=== PATIENT | female | born 1935 | race Caucasian/White ===

== ENCOUNTER 2025-03-27 12:08 | Inpatient (IN) ==
[2025-03-27] MEDS: MECLIZINE HCL 25 MG TAB PO STA (13:14)
[2025-03-27] MEDS: ONDANSETRON INJ 2 MG/ML 2 ML VIAL IV STA (13:14)
[2025-03-27] MEDS: LORazepam 1 MG/1 ML SYR ED Inj Use IV STA ×2 (13:14→16:06)
[2025-03-27] MEDS: SODIUM CHLORIDE 0.9% 500 ML IV ONE (13:17)
--- NOTE | 2025-03-27 13:19 | Emergency Department Note ---
Impression & Plan Dizziness, Acute hyponatremia ED Provider Note HISTORY OF PRESENT ILLNESS: Patient is a 89-year-old female presenting with dizziness. Patient reports she has had intermittent dizziness for the last 4 days. Reports that 4 days ago (on 03/24/2025) she was not feeling well for most of the day. Reports that she had gone to bed and had woken up that night to go to the bathroom and felt very dizzy. She describes the dizziness as the room is spinning. She does report that her vision seems to be a little worse over the last 4 days. She states that she has been having difficulties getting around at home secondary to the continuous dizziness. She denies any chest pain or shortness of breath. She has not taken anything for her dizzy symptoms. She does report associated nausea with the dizziness. She denies any recent falls or head injuries. Denies any chiropractic manipulation of her neck. She does report her lower extremities seem more swollen to her. She denies any DVT or PE history. Denies any stroke history. She is not on any anticoagulation or antiplatelet therapies. Denies any recent changes to medications. ROS: as above PHYSICAL EXAM: Constitutional: Patient appears in no acute distress. Patient sitting in bed with her eyes closed. HENT: Head: Normocephalic and atraumatic. Eyes: EOMI, PERRL. Patient is notable to have nystagmus on examination. Mouth/Throat: Mucous membranes moist. Neck: Trachea midline. Neck supple. Cardiovascular: RRR, No murmurs, rubs or gallops. Intact distal pulses. Pulmonary/Chest: No respiratory distress. Breath sounds clear and equal bilaterally. No wheezes or rales. Abdominal: Abdomen soft, no tenderness, rebound or guarding. Musculoskeletal: No edema, tenderness or deformity noted. Skin: Warm and dry. No rash, erythema, pallor or cyanosis Psychiatric: Appropriate mood and affect for situation. Neurological: Alert and keenly responsive. Facies symmetric. Able to raise eyebrows, close eyes, smile, puff mouth, stick out tongue, move tongue left and right and raise palate symmetrically. Able to shrug shoulders. PERRLA. SILT to forehead below eye and at jawline. Can hear soft noise bilaterally. Good finger to nose. Strength 5/5 in bilateral upper and lower extremities. SILT throughout bilateral upper and lower extremities. MDM: - Vitals signs showed hypertension - History obtained via patient. History as above. - Chronic conditions affecting care: HLD - Differential diagnoses include, but are not limited to: ACS; dysrhythmia; dehydration; electrolyte abnormality; CVA; intracranial hemorrhage; peripheral vertigo - Order placed for continuous cardiac monitoring. At this time, monitor showed rate of 80 bpm with normal sinus rhythm, per my interpretation. - External medical records reviewed. - EKG image interpreted by myself showed normal sinus rhythm. Rate 73 bpm. QT 384. No acute ischemic changes. - Laboratory workup interpreted by myself showed normal WBC; hyponatremia (Na 126); elevated BNP (112); hypercalcemia (Ca 11.0); normal troponin; normal AST/ALT - CXR image reviewed interpreted by myself as needed for pneumonia, per my interpretation. - COVID/flu/RSV negative - Patient given 500 cc NS, 25 mg PO meclizine, 4 mg IV zofran and 0.25 mg IV ativan for symptomatic management. Blood pressure has improved. - CT head wo contrast negative for acute pathology. - CTA head/neck negative for acute pathology - On reassessment, patient ambulated to the bathroom with some slight assistance from nursing staff. She reports she is occasionally dizzy, but does state that her dizziness has significantly improved from presentation. - Patient came back from CT scan and her blood pressure was significantly elevated again. She is now sitting in bed and able to look at you and converse, but is stating that when she stood up she felt very dizzy and lightheaded and required some significant assistance. Discussed results with the patient and daughter at bedside. Do feel that she would benefit from further workup in the inpatient setting. They were agreeable. She was given 0.25 mg of IV Ativan for further dizziness control. - UA obtained. - Discussion was had with outpatient case manager about patient's case and need for admission - Hospitalist consulted for admission - Patient admitted to [facility] service for further evaluation and management. ASSESSMENT AND PLAN: Diagnosis: Dizziness; acute hyponatremia; hypertension Plan: Admit Past Med/Surg History Problem List (Updated 03/27/25 @ 15:22 by May Dominguez MD) Acute hyponatremia (Acute) Dizziness (Acute) H/O bilateral inguinal hernia repair (07/23/20) Bilateral Laparoscopic Inguinal Hernia Repair with Mesh Dr. Casanova 07/23/2020 Encounter for pre-operative examination Facial basal cell cancer Per records Parotid adenoma Hyperlipemia Chambers angioma Notalgia paresthetica John syndrome Parotid cyst excision 2005 H/O colonoscopy Right lower quadrant pain Bilateral inguinal hernia without obstruction or gangrene Medical History (Updated 03/27/25 @ 15:22 by May Dominguez MD) TGA (transient global amnesia) Hx of one year ago Negative work up per PCP Osteoarthritis History of trigeminal neuralgia History of asthma as a child HLD (hyperlipidemia) Mild mitral regurgitation Mild per 2013 ECHO- no murmur on 07/11/20 PCP exam Surgical History (Updated 08/08/20 @ 09:39 by Lopez Casanova DO, FACS) History of surgery removal benign growth parotid gland History of tonsillectomy and adenoidectomy History of colonoscopy Family History Mother Colorectal cancer Aunt Diabetes Family/Other Diabetes Other No family history of adverse response to anesthesia Social History Smoking Status: Never smoker Second Hand Exposure: No; Do You Dip or Chew Tobacco: No; Hx Alcohol Use: Yes Alcohol type: wine Hx Substance Use: No Preferred Language: French Communication Ability: Effective Work Force Advisor Required: No Beliefs That Will Affect Care: None marital status: / Current Living Situation Comment: currently living with son current occupational status: retired How many Children do You have: 2 Feels Safe at Home: Yes Assistive Devices: Glasses Allergies Allergies Allergy/AdvReac Type Severity Reaction Status Date / Time indigotindisulfonic acid Allergy Mild Told not Verified 08/08/20 09:28 [From Indigo [facility]] to use by MD due to source of from insects? atorvastatin Allergy swelling Verified 08/08/20 09:28 of lips bee venom protein (honey bee) Allergy Anaphylaxis Verified 08/08/20 09:28 Penicillins Allergy Hives Verified 08/08/20 09:28 pravastatin [From Pravachol] Allergy swelling Verified 08/08/20 09:28 of lips Home Meds Home Medications Medication Instructions Recorded Confirmed aspirin 81 mg tablet,delayed 81 mg PO QAM 06/26/20 08/08/20 release (Adult Low Dose Aspirin) Results & Data (ED) Vital Signs Vital Signs - 24 hr 03/27/25 12:10 03/27/25 12:52 03/27/25 13:12 Temperature 36.7 C Temperature Source Temporal Artery Scan Pulse Rate - Lying Pulse Rate - Sitting Pulse Rate - Standing Pulse Rate 80 78 70 Pulse Rate from SpO2 Sensor Respiratory Rate 17 18 Respiratory Effort / Characteristics Non-Labored Spontaneous Respiratory Depth Normal Blood Pressure - Lying Blood Pressure - Sitting Blood Pressure- Standing Blood Pressure 206/80 H Blood Pressure Mean 122 Pulse Oximetry 99 Oxygen Delivery Method Room Air Sepsis Recent Fever Within 48 Hours No Sepsis New/Unexplained Change in Mental Status N/A Sepsis Action Taken by Nursing No Action Required 03/27/25 13:13 03/27/25 13:30 03/27/25 13:30 Temperature Temperature Source Pulse Rate - Lying Pulse Rate - Sitting Pulse Rate - Standing Pulse Rate 74 Pulse Rate from SpO2 Sensor Respiratory Rate 18 Respiratory Effort / Characteristics Respiratory Depth Blood Pressure - Lying Blood Pressure - Sitting Blood Pressure- Standing Blood Pressure 186/86 H 178/89 H Blood Pressure Mean 127 121 Pulse Oximetry Oxygen Delivery Method Sepsis Recent Fever Within 48 Hours Sepsis New/Unexplained Change in Mental Status Sepsis Action Taken by Nursing 03/27/25 14:00 03/27/25 14:00 03/27/25 14:00 Temperature Temperature Source Pulse Rate - Lying Pulse Rate - Sitting Pulse Rate - Standing Pulse Rate 80 75 Pulse Rate from SpO2 Sensor Respiratory Rate 17 13 Respiratory Effort / Characteristics Respiratory Depth Blood Pressure - Lying Blood Pressure - Sitting Blood Pressure- Standing Blood Pressure 148/109 H 148/109 H Blood Pressure Mean 116 116 Pulse Oximetry Oxygen Delivery Method Sepsis Recent Fever Within 48 Hours Sepsis New/Unexplained Change in Mental Status Sepsis Action Taken by Nursing 03/27/25 14:30 03/27/25 14:30 03/27/25 15:27 Temperature Temperature Source Pulse Rate - Lying Pulse Rate - Sitting Pulse Rate - Standing Pulse Rate 78 Pulse Rate from SpO2 Sensor Respiratory Rate 23 Respiratory Effort / Characteristics Respiratory Depth Blood Pressure - Lying Blood Pressure - Sitting Blood Pressure- Standing Blood Pressure 174/84 H 193/88 H Blood Pressure Mean 119 99 Pulse Oximetry Oxygen Delivery Method Sepsis Recent Fever Within 48 Hours Sepsis New/Unexplained Change in Mental Status Sepsis Action Taken by Nursing 03/27/25 15:28 03/27/25 15:29 03/27/25 15:30 Temperature Temperature Source Pulse Rate - Lying Pulse Rate - Sitting Pulse Rate - Standing Pulse Rate 83 Pulse Rate from SpO2 Sensor 81 Respiratory Rate 17 Respiratory Effort / Characteristics Respiratory Depth Blood Pressure - Lying Blood Pressure - Sitting Blood Pressure- Standing Blood Pressure 197/88 H 195/91 H Blood Pressure Mean 115 109 Pulse Oximetry 97 Oxygen Delivery Method Sepsis Recent Fever Within 48 Hours Sepsis New/Unexplained Change in Mental Status Sepsis Action Taken by Nursing 03/27/25 15:32 03/27/25 15:35 Temperature Temperature Source Pulse Rate - Lying 78 Pulse Rate - Sitting 86 Pulse Rate - Standing 93 H Pulse Rate 84 Pulse Rate from SpO2 Sensor 80 Respiratory Rate 17 Respiratory Effort / Characteristics Respiratory Depth Blood Pressure - Lying 174/80 H Blood Pressure - Sitting 193/88 H Blood Pressure- Standing 197/88 H Blood Pressure Blood Pressure Mean Pulse Oximetry 94 Oxygen Delivery Method Sepsis Recent Fever Within 48 Hours Sepsis New/Unexplained Change in Mental Status Sepsis Action Taken by Nursing Laboratory Data 03/27/25 13:05 03/27/25 12:10 Lab Results 03/27/25 03/27/25 03/27/25 Range/Units 12:10 12:58 13:05 WBC Cancelled 7.67 RBC Cancelled 4.58 Hgb Cancelled 14.8 Hct Cancelled 40.5 MCV Cancelled 88.4 MCH Cancelled 32.3 MCHC Cancelled 36.5 H RDW Std Deviation Cancelled 39.8 RDW Coeff of Judson Cancelled 12.2 Plt Count Cancelled 238 MPV Cancelled 10.6 Immature Gran % (Auto) Cancelled 0.5 Neut % (Auto) Cancelled 76.9 Lymph % (Auto) Cancelled 15.5 Cocke % (Auto) Cancelled 6.6 Eos % (Auto) Cancelled 0.1 Baso % (Auto) Cancelled 0.4 Neut # (Auto) Cancelled 5.89 Lymph # (Auto) Cancelled 1.19 L Cocke # (Auto) Cancelled 0.51 Eos # (Auto) Cancelled 0.01 Baso # (Auto) Cancelled 0.03 Immature Gran # (Auto) Cancelled 0.04 Absolute Nucleated RBC Cancelled Nucleated RBC % (auto) Cancelled Neutrophils % (Manual) Cancelled Band Neutrophils % Cancelled Lymphocytes % (Manual) Cancelled Prolymphocyte % Cancelled Reactive Lymphs % (Man) Cancelled Monocytes % (Manual) Cancelled Eosinophils % (Manual) Cancelled Basophils % (Manual) Cancelled Metamyelocytes % (Man) Cancelled Myelocytes % (Man) Cancelled Promyelocytes % (Man) Cancelled Blast Cells % (Manual) Cancelled Plasma Cell % (Manual) Cancelled Other Cells % Cancelled Nucleated RBC % Cancelled Neutrophils # (Manual) Cancelled Band Neutrophils # Cancelled Total Absolute Neuts Cancelled Lymphocytes # (Manual) Cancelled Prolymphocyte # Cancelled Reactive Lymphs # Cancelled Total Abs Lymphocytes Cancelled Monocytes # (Manual) Cancelled Eosinophils # (Manual) Cancelled Basophils # (Manual) Cancelled Metamyelocytes # (Man) Cancelled Myelocytes # (Manual) Cancelled Promyelocytes # (Man) Cancelled Blast Cells # (Man) Cancelled Plasma Cell # (Manual) Cancelled Other Cells # Cancelled Nucleated RBCs # (Man) Cancelled Hypersegmented Neuts Cancelled Hyposegmented Neuts Cancelled Hypogranular Neuts Cancelled Large Granular Lymphs Cancelled # Lrg Granular Lymphs Cancelled Hairy Cells Cancelled Smudge Cells Cancelled Toxic Granulation Cancelled Toxic Vacuolation Cancelled Dohle Bodies Cancelled Cj Rods Cancelled Platelet Estimate Cancelled Hypogranular Platelets Cancelled Giant Platelets Cancelled Platelet Satelliting Cancelled RBC Morphology Cancelled Polychromasia Cancelled Hypochromasia Cancelled Poikilocytosis Cancelled Basophilic Stippling Cancelled Anisocytosis Cancelled Microcytosis Cancelled Macrocytosis Cancelled Spherocytes Cancelled Pappenheimer Bodies Cancelled Sickle Cells Cancelled Target Cells Cancelled Tear Drop Cells Cancelled Ovalocytes Cancelled Stomatocytes Cancelled Galeano-Lowry Bodies Cancelled Echinocytes Cancelled Acanthocytes (Spur) Cancelled Rouleaux Cancelled RBC Agglutinates Cancelled Schistocytes Cancelled Sezary Cell Cancelled Sodium 126 L (136-145) mmol/L Potassium 3.8 (3.5-5.1) mmol/L Chloride 93 L (98-107) mmol/L Carbon Dioxide 25 (21-32) mmol/L Anion Gap 8 (3-11) BUN 16 (6-23) mg/dl Creatinine 0.70 (0.6-1.2) mg/dl Est Cr Clr Drug Dosing Not Reportable eGFR 83.13 BUN/Creatinine Ratio 22.9 H (10-20) Glucose 101 H (70-99(Fasting)) mg/dl Calcium 11.0 H (8.6-10.3) mg/dl Magnesium 2.1 (1.7-2.4) mg/dl Total Bilirubin 0.8 (0.2-1.0) mg/dl AST 20 (13-39) U/L ALT 14 (7-52) U/L Alkaline Phosphatase 104 (34-104) U/L Troponin I High Sens 9.5 (0-14) pg/ml B-Natriuretic Peptide 112 H (0-100) pg/ml Total Protein 8.5 H (6.0-8.3) gm/dl Albumin 4.5 (3.4-5.0) gm/dl Globulin 4.0 (2.5-4.0) gm/dl Albumin/Globulin Ratio 1.1 (0.9-2) Urine Comment SARS-CoV-2 (PCR) NEGATIVE (Negative) Influenza Type A (PCR) Negative (Neg) Influenza Type B (PCR) Negative (Neg) RSV (RT-PCR) Negative (Neg) Blood Parasites ID Cancelled 03/27/25 Range/Units 15:31 WBC RBC Hgb Hct MCV MCH MCHC RDW Std Deviation RDW Coeff of Judson Plt Count MPV Immature Gran % (Auto) Neut % (Auto) Lymph % (Auto) Cocke % (Auto) Eos % (Auto) Baso % (Auto) Neut # (Auto) Lymph # (Auto) Cocke # (Auto) Eos # (Auto) Baso # (Auto) Immature Gran # (Auto) Absolute Nucleated RBC Nucleated RBC % (auto) Neutrophils % (Manual) Band Neutrophils % Lymphocytes % (Manual) Prolymphocyte % Reactive Lymphs % (Man) Monocytes % (Manual) Eosinophils % (Manual) Basophils % (Manual) Metamyelocytes % (Man) Myelocytes % (Man) Promyelocytes % (Man) Blast Cells % (Manual) Plasma Cell % (Manual) Other Cells % Nucleated RBC % Neutrophils # (Manual) Band Neutrophils # Total Absolute Neuts Lymphocytes # (Manual) Prolymphocyte # Reactive Lymphs # Total Abs Lymphocytes Monocytes # (Manual) Eosinophils # (Manual) Basophils # (Manual) Metamyelocytes # (Man) Myelocytes # (Manual) Promyelocytes # (Man) Blast Cells # (Man) Plasma Cell # (Manual) Other Cells # Nucleated RBCs # (Man) Hypersegmented Neuts Hyposegmented Neuts Hypogranular Neuts Large Granular Lymphs # Lrg Granular Lymphs Hairy Cells Smudge Cells Toxic Granulation Toxic Vacuolation Dohle Bodies Cj Rods Platelet Estimate Hypogranular Platelets Giant Platelets Platelet Satelliting RBC Morphology Polychromasia Hypochromasia Poikilocytosis Basophilic Stippling Anisocytosis Microcytosis Macrocytosis Spherocytes Pappenheimer Bodies Sickle Cells Target Cells Tear Drop Cells Ovalocytes Stomatocytes Galeano-Lowry Bodies Echinocytes Acanthocytes (Spur) Rouleaux RBC Agglutinates Schistocytes Sezary Cell Sodium (136-145) mmol/L Potassium (3.5-5.1) mmol/L Chloride (98-107) mmol/L Carbon Dioxide (21-32) mmol/L Anion Gap (3-11) BUN (6-23) mg/dl Creatinine (0.6-1.2) mg/dl Est Cr Clr Drug Dosing eGFR BUN/Creatinine Ratio (10-20) Glucose (70-99(Fasting)) mg/dl Calcium (8.6-10.3) mg/dl Magnesium (1.7-2.4) mg/dl Total Bilirubin (0.2-1.0) mg/dl AST (13-39) U/L ALT (7-52) U/L Alkaline Phosphatase (34-104) U/L Troponin I High Sens (0-14) pg/ml B-Natriuretic Peptide (0-100) pg/ml Total Protein (6.0-8.3) gm/dl Albumin (3.4-5.0) gm/dl Globulin (2.5-4.0) gm/dl Albumin/Globulin Ratio (0.9-2) Urine Comment SARS-CoV-2 (PCR) (Negative) Influenza Type A (PCR) (Neg) Influenza Type B (PCR) (Neg) RSV (RT-PCR) (Neg) Blood Parasites ID Administered Medications Discontinued Medications Sodium Chloride (Nss) 500 mls @ 999 mls/hr IV .Q31M ONE Stop: 03/27/25 13:22 Last Infusion: 03/27/25 13:57 Dose: Infused Documented By: robert Admin: 03/27/25 13:17 Dose: 999 mls/hr Documented By: robert Ioversol (Optiray 320 125ml) 115 ml IV ONCE ONE Stop: 03/27/25 15:09 Last Admin: 03/27/25 15:08 Dose: 115 ml Documented By: ADINA Lorazepam (Lorazepam 1 Mg/1 Ml Syr Ed Inj Use) 0.5 mg IV ONE STA Stop: 03/27/25 12:50 Last Admin: 03/27/25 13:14 Dose: 0.5 mg Documented By: robert Meclizine HCl (Meclizine Hcl 25 Mg Tab) 25 mg PO NOW STA Stop: 03/27/25 12:50 Last Admin: 03/27/25 13:14 Dose: 25 mg Documented By: robert Ondansetron HCl (Ondansetron Inj 2 Mg/Ml 2 Ml Vial) 4 mg IV NOW STA Stop: 03/27/25 12:53 Last Admin: 03/27/25 13:14 Dose: 4 mg Documented By: robert Imaging Data Radiologist's Impression: Chest X-Ray 03/27/25 12:31 XR chest 1V portable HISTORY: 89 years-old Female dizziness acute dizziness COMPARISON: None available TECHNIQUE: AP view of the chest FINDINGS: Cardiomediastinal and hilar silhouettes are within normal limits. Atherosclerosis of the aorta. No pneumothorax, pleural effusion, airspace consolidation or pulmonary edema. Degenerative changes of the shoulders and spine. IMPRESSION: No acute process. ACT 112: Negative or not required by law. The above report was generated using voice recognition software. It may contain grammatical, syntax or spelling errors. Electronically signed by: Alfonso Nicole M.D. 03/27/2025 1:[address] 03/27/25 12:49 CT SCAN OF THE BRAIN WITHOUT IV CONTRAST CLINICAL HISTORY: Dizziness. COMPARISON STUDY: None. TECHNIQUE: Unenhanced axial CT scan of the brain was performed from the vertex to the skull base. A dose lowering technique was utilized adhering to the principles of ALARA. CT DOSE: 952.99 mGy.cm FINDINGS: Brain parenchyma: No acute intracranial hemorrhage, midline shift or mass effect is present. Lackey-white matter differentiation is preserved. There are no extra- axial fluid collections. There are no findings to suggest acute dural sinus thrombosis or acute territorial infarct. Ventricles, sulci, cisterns: There is no hydrocephalus. The basal cisterns are patent. Calvarium: Unremarkable. Sinuses and mastoids: The visualized paranasal sinuses are clear. The mastoid air cells are well pneumatized. Orbits: The bony orbits are grossly intact. IMPRESSION: No acute intracranial findings. ACT 112: Negative or not required by law. Electronically signed by: Jakob Graham M.D. 03/27/2025 3:27 PM Head CTA 03/27/25 12:49 CT ANGIOGRAM OF THE BRAIN CLINICAL HISTORY: Dizziness. COMPARISON STUDY: Unenhanced CT of the brain performed concurrently on 03/27/2025. TECHNIQUE: Following the IV administration of 115 cc of Optiray 320, CT angiogram of the brain was performed from the skull base to the vertex. Images are reviewed in the axial, sagittal, and coronal planes. 3-D MIPS images are created and assessed. IV contrast was administered without complication. A dose lowering technique was utilized adhering to the principles of ALARA. FINDINGS: Brain parenchyma: There is age related involutional change noting minimal microangiopathic disease. There is no evidence of hemorrhage or mass effect noting angiographic phase technique. There is no evidence of enhancing mass lesion on the angiogram phase images. No extra-axial fluid collection is seen. Lackey-white matter differentiation is preserved. Ventricles, sulci, and cisterns: Prominent secondary to involutional change. CT angiogram of the brain: There is atherosclerotic calcification of the cavernous carotid arteries. The internal carotid arteries at the skull base are patent, as are the anterior and middle cerebral arteries. The vertebrobasilar system and posterior cerebral arteries are patent. The right vertebral artery is dominant. A posterior communicating artery seen on the left. There is irregularity and foci of mild stenosis involving the basilar artery. No foci of high-grade stenosis are seen throughout the intracranial circulation. No aneurysm is identified and there is no focal vessel cut off appreciated. Dural sinuses: Clear as visualized. Orbits: The bony orbits are intact. The orbital contents are normal as visualized. Sinuses and mastoids: There is trace mucosal thickening within the left maxillary antra and ethmoid sinuses. The mastoid air cells are well pneumatized. Calvarium: Unremarkable. IMPRESSION: 1. There is no evidence of hemorrhage or mass effect noting angiographic phase technique. 2. No aneurysm, foci of high-grade stenosis, or vessel occlusion is seen throughout the intracranial circulation. ACT 112: Negative or not required by law. Electronically signed by: Eliud Naranjo M.D. 03/27/2025 3:28 PM Discharge Plan Visit Data Chief Complaint: Vertigo Stated Complaint: VERTIGO, NAUSEA, ED Provider: May Dominguez Discharge Problem: Dizziness, Acute hyponatremia Patient Disposition: Admitted As Inpatient Condition: Fair Forms Stand Alone Forms: [facility] Prescriptions Prescriptions: No Action aspirin [Adult Low Dose Aspirin] 81 mg tablet,delayed release (DR/EC) 81 mg PO QAM Referrals Referrals: Tommy Lopez MD [Primary Care Provider] -
--- NOTE | 2025-03-27 13:22 | XRay Report ---
XR chest 1V portable HISTORY: 89 years-old Female dizziness acute dizziness COMPARISON: None available TECHNIQUE: AP view of the chest FINDINGS: Cardiomediastinal and hilar silhouettes are within normal limits. Atherosclerosis of the aorta. No pn eumothorax, pleural effusion, airspace consolidation or pulmonary edema. Degenerative changes of the shoulders and spine. IMPRESSION: No acute process. ACT 112: Negative or not required by law. The above report was generated using voice recognition software. It may contain grammatical, syntax o r spelling errors. Electronically signed by: Alfonso Nicole M.D. 03/27/2025 1:21 PM
[2025-03-27 13:32] LABS: Alanine Aminotransferase 14 U/L (7-52); Albumin Globulin Ratio 1.1 (0.9-2); Albumin Level 4.5 gm/dl (3.4-5.0); Alkaline Phosphatase 104 U/L (34-104); Anion Gap 8 (3-11); Bilirubin,Total 0.8 mg/dl (0.2-1.0); Blood Urea Nitrogen 16 mg/dl (6-23); Calcium 11.0 mg/dl (8.6-10.3); Carbon Dioxide 25 mmol/L (21-32); Chloride 93 mmol/L (98-107); Globulin 4.0 gm/dl (2.5-4.0); Glucose 101 mg/dl (70-99(Fasting)); Magnesium 2.1 mg/dl (1.7-2.4); Potassium 3.8 mmol/L (3.5-5.1); Sodium 126 mmol/L (136-145); Total Protein 8.5 gm/dl (6.0-8.3)
[2025-03-27 13:37] LABS: Hematocrit (blood only) 40.5 % (37.0-47.0); Hemoglobin 14.8 g/dL (12.0-16.0); Immature Granulocytes # (auto) 0.04 K/uL (0.01-0.20); Immature Granulocytes % (auto) 0.5 %; Mean Corpuscular Hemoglobin 32.3 pg (25.0-34.0); Mean Corpuscular Volume 88.4 fL (80.0-100.0); Platelet Count 238 K/uL (130-400); RDW Standard Deviation 39.8 fL (36.4-46.3); Red Blood Count 4.58 M/uL (4.20-5.40); White Blood Count 7.67 K/ul (4.8-10.8)
[2025-03-27 13:56] LABS: Influenza A virus by PCR Negative (Neg); Influenza B virus by PCR Negative (Neg); SARS CoV2 RNA(COVID-19) Ceph NEGATIVE (Negative)
[2025-03-27] MEDS: OPTIRAY 320 125ml IV ONE (15:08)
--- NOTE | 2025-03-27 15:28 | CT Scan Report ---
CT SCAN OF THE BRAIN WITHOUT IV CONTRAST CLINICAL HISTORY: Dizziness. COMPARISON STUDY: None. TECHNIQUE: Unenhanced axial CT scan of the brain was performed from the vertex to the skull base. A dose lowering technique was utilized adhering to the principles of ALARA. CT DOSE: 952.99 mGy.cm FINDINGS: Brain parenchyma: No acute intracranial hemorrhage, midline shift or mass effect is present. Lackey-whi te matter differentiation is preserved. There are no extra-axial fluid collections. There are no find ings to suggest acute dural sinus thrombosis or acute territorial infarct. Ventricles, sulci, cisterns: There is no hydrocephalus. The basal cisterns are patent. Calvarium: Unremarkable. Sinuses and mastoids: The visualized paranasal sinuses are clear. The mastoid air cells are well pneu matized. Orbits: The bony orbits are grossly intact. IMPRESSION: No acute intracranial findings. ACT 112: Negative or not required by law. Electronically signed by: Jakob Graham M.D. 03/27/2025 3:27 PM
--- NOTE | 2025-03-27 15:29 | CT Scan Report ---
CT ANGIOGRAM OF THE BRAIN CLINICAL HISTORY: Dizziness. COMPARISON STUDY: Unenhanced CT of the brain performed concurrently on 03/27/2025. TECHNIQUE: Following the IV administration of 115 cc of Optiray 320, CT angiogram of the brain was pe rformed from the skull base to the vertex. Images are reviewed in the axial, sagittal, and coronal pl anes. 3-D MIPS images are created and assessed. IV contrast was administered without complication. A dose lowering technique was utilized adhering to the principles of ALARA. FINDINGS: Brain parenchyma: There is age related involutional change noting minimal microangiopathic disease. T here is no evidence of hemorrhage or mass effect noting angiographic phase technique. There is no stan dence of enhancing mass lesion on the angiogram phase images. No extra-axial fluid collection is seen . Lackey-white matter differentiation is preserved. Ventricles, sulci, and cisterns: Prominent secondary to involutional change. CT angiogram of the brain: There is atherosclerotic calcification of the cavernous carotid arteries. The internal carotid arteries at the skull base are patent, as are the anterior and middle cerebral a rteries. The vertebrobasilar system and posterior cerebral arteries are patent. The right vertebral a rtery is dominant. A posterior communicating artery seen on the left. There is irregularity and foci of mild stenosis involving the basilar artery. No foci of high-grade stenosis are seen throughout the intracranial circulation. No aneurysm is identified and there is no focal vessel cut off appreciated . Dural sinuses: Clear as visualized. Orbits: The bony orbits are intact. The orbital contents are normal as visualized. Sinuses and mastoids: There is trace mucosal thickening within the left maxillary antra and ethmoid s inuses. The mastoid air cells are well pneumatized. Calvarium: Unremarkable. IMPRESSION: 1. There is no evidence of hemorrhage or mass effect noting angiographic phase technique. 2. No aneurysm, foci of high-grade stenosis, or vessel occlusion is seen throughout the intracranial circulation. ACT 112: Negative or not required by law. Electronically signed by: Eliud Naranjo M.D. 03/27/2025 3:28 PM
--- NOTE | 2025-03-27 15:54 | CT Scan Report ---
CT angio neck with con CLINICAL HISTORY: 89 years-old Female with dizziness. Acute dizziness COMPARISON STUDY: Head CT same day TECHNIQUE: Following the IV administration of 115 mL of Optiray, CT angiogram of the neck was perform ed from the aortic arch to the skull base. Images are reviewed in the axial, sagittal, and coronal pl anes. 3-D MIPS images are created and assessed. IV contrast was administered without complication. Al l measurements were calculated based on NASCET criteria. A dose lowering technique was utilized adhe ring to the principles of ALARA. FINDINGS: Atherosclerosis of the thoracic aortic arch. Patency of the innominate and image subclavian arteries. The common carotid arteries are widely patent. Atherosclerosis of the carotid bulbs without high-gra de stenosis. Dominant right vertebral artery demonstrates mild multifocal stenoses secondary to the c hanges of the cervical spine. The left vertebral artery is patent with the V4 segment very diminutive in size distal to the plica origin. Partially imaged moderate stenosis of the mid basilar artery. Lung apices are clear. No pneumothorax. 7 mm hypodense right-sided thyroid nodule. Right-sided thyroi d calcifications. Degenerative changes of the cervical spine. IMPRESSION: 1. Very small caliber of the distal V4 segment left vertebral artery distal to the PICA origin, likel y developmental. 2. Moderate atherosclerosis of the carotid bulbs without high-grade stenosis. ACT 112: Negative or not required by law. The above report was generated using voice recognition software. It may contain grammatical, syntax o r spelling errors. Electronically signed by: Alfonso Nicole M.D. 03/27/2025 3:52 PM
[2025-03-27 15:56] LABS: Appearance Urine Clear (Clear); Glucose Urine UA Negative (Negative)
--- NOTE | 2025-03-27 16:03 | History & Physical Report ---
Date of Service March 27, 2025 Assessment & Plan (1) Dizziness: Plan: Patient is a 89-year-old female with PMH HLD, primary hyperparathyroidism, hyperkalemia presented to ER with complaint of dizziness x 4 days In ER afebrile, P: 80, R: 17, BP 206/80, 99% on room air CT Head: No acute intracranial findings CTA Head: There is no evidence of hemorrhage or mass effect noting angiographic phase technique. No aneurysm, foci of high-grade stenosis, or vessel occlusion is seen throughout the intracranial circulation. CTA Neck: Very small caliber of the distal V4 segment left vertebral artery distal to the PICA origin, likely developmental. Moderate atherosclerosis of the carotid bulbs without high-grade stenosis. In ER given 500ml NSS, Zofran, meclizine, total 0.75mg IV lorazepam. Patient reports some improvement of dizziness, was able to ambulate to restroom with staff assistance, still dizzy with head movements Presents as vertigo. R/O cerebellar stroke MRI brain to r/o stroke Meclizine prn Fall precautions PT eval for Sigifredo maneuver CBC, BMP in am (2) Acute hyponatremia: Plan: Na: 126 (135 on 12/24/24) In ER given 500 mL NSS Serum osmolality, urine osmolality, urine sodium pending Repeat BMP tonight (3) Hypertensive urgency: Plan: In ER BP 206/80, 195/91 No diagnosis hypertension. Suspect secondary to underlying dizziness Trial low dose hydralazine. Monitor BP. Pt hesitant about medications (4) Hyperlipemia: Plan: Defers medications Lipid panel on 12/24/24: Total: 269, LDL: 187, HDL: 57, triglycerides: 126 (5) Hyperparathyroidism, primary: Plan: #Chronic Hypercalcemia Previously followed with endocrinology. Declines intervention and is monitored Ca: 11.0 (baseline Cr: 10.5-10.8) #History hyperkalemia K: 3.8 (baseline K: 5.4-5.9) Monitor BMP DVT Prophylaxis SQ Heparin Admit med tele DNR/DNI as per discussion with pt Follows with Dr Lpoez for routine care Pt was seen and care coordinated with Dr Miguel. See addendum I spent a total of 60 minutes reviewing notes, outpatient records, labs, medication, coordinating, documenting and providing care for this patient excluding time spent in the performance of separately billed services and excluding time spent by another provider/QHP. History of Present Illness Chief Complaint: Dizziness Primary Care Provider: Tommy Lopez MD Patient is a 89-year-old female with PMH HLD, primary hyperparathyroidism, hyperkalemia presented to ER with complaint of dizziness x 4 days. Patient states four days ago she woke up and stood up and had dizziness she describes as "house spinning" with associated nausea and feeling off balance. Reports dizziness with any movement or walking. States had some dry heaves but no vomiting. Reports sitting in recliner past 3 days secondary to dizziness. Noticed bilateral ankles looked swollen however reports have decreased since being in ER in bed with legs elevated. Also reports not eating or drinking as much secondary to the dizziness. Typically consumes 5-7 glasses water daily however over past 3 days has only consumed 5 glasses water. Chronic hearing loss and poor vision without any acute changes reported. Denies tinnitus. Denies fever/chills, diaphoresis, diarrhea, constipation, CARLSON, syncope, neck pain, CP, SOB, cough, sore throat, otalgia, rhinorrhea, abdominal pain, paresthesias, weakness, rashes, urinary symptoms. Allergies Allergy/AdvReac Type Severity Reaction Status Date / Time indigotindisulfonic acid Allergy Mild Told not Verified 03/27/25 17:19 [From [place]igo [place]] to use by MD due to source of from insects? atorvastatin Allergy swelling Verified 03/27/25 17:19 of lips bee venom protein (honey bee) Allergy Anaphylaxis Verified 03/27/25 17:19 Penicillins Allergy Hives Verified 03/27/25 17:19 pravastatin [From Pravachol] Allergy swelling Verified 03/27/25 17:19 of lips Home Medications Medication Instructions Recorded Confirmed Type No Known Home Medications 03/27/25 03/27/25 History Past Med/Surg History Problem List Hypertensive urgency Acute hyponatremia (Acute) Dizziness (Acute) H/O bilateral inguinal hernia repair (07/23/20) Bilateral Laparoscopic Inguinal Hernia Repair with Mesh Dr. Casanova 07/23/2020 Encounter for pre-operative examination Facial basal cell cancer Per records Parotid adenoma Hyperlipemia Chambers angioma Notalgia paresthetica John syndrome Parotid cyst excision 2005 H/O colonoscopy Right lower quadrant pain Bilateral inguinal hernia without obstruction or gangrene Medical History Hyperparathyroidism, primary TGA (transient global amnesia) Hx of one year ago Negative work up per PCP Osteoarthritis History of trigeminal neuralgia History of asthma as a child HLD (hyperlipidemia) Mild mitral regurgitation Mild per 2013 ECHO- no murmur on 07/11/20 PCP exam Surgical History History of surgery removal benign growth parotid gland History of tonsillectomy and adenoidectomy History of colonoscopy Family History Mother Colorectal cancer Aunt Diabetes Family/Other Diabetes Other No family history of adverse response to anesthesia Social History Smoking Status: Never smoker Second Hand Exposure: No; Do You Dip or Chew Tobacco: No; Hx Alcohol Use: Yes Alcohol type: wine Hx Substance Use: No Preferred Language: Urdu Communication Ability: Effective University Tutor Required: No Beliefs That Will Affect Care: None marital status: / Current Living Situation Comment: currently living with son current occupational status: retired How many Children do You have: 2 Feels Safe at Home: Yes Assistive Devices: Glasses Review of Systems Review of Systems: All systems reviewed & are unremarkable except as noted in HPI & below Physical Exam Physical Exam: General: no distress, WDWN Head: normocephalic, atraumatic Eyes: PERRL, EOM's intact, conjunctiva non-injected, anicteric ENT: normal inspection external ears, nose, mucous membranes moist Neck: supple, trachea midline, non-tender Lungs: clear, no respiratory distress, no wheezing/rhonchi/rales CV: RRR, no murmur, trace pretibial edema Abd: normal BS, soft, non-tender Ext: no cyanosis, no calf tenderness Neuro: A&O x 3, + +horizontal nystagmus noted, +dizziness reproduced with movement of head, no focal deficits noted, normal affect Skin: warm, dry Results & Data Results & Data Vital Signs (Past 12 Hours) Vital Signs Temp Pulse Resp BP Pulse Ox O2 Del Method 03/27/25 15:32 84 17 94 03/27/25 15:30 195/91 H 03/27/25 15:29 83 17 97 03/27/25 15:28 197/88 H 03/27/25 15:27 193/88 H 03/27/25 14:30 78 23 03/27/25 14:30 174/84 H 03/27/25 14:00 75 13 148/109 H 03/27/25 14:00 80 17 03/27/25 14:00 148/109 H 03/27/25 13:30 178/89 H 03/27/25 13:30 74 18 03/27/25 13:13 186/86 H 03/27/25 13:12 70 18 03/27/25 12:52 78 03/27/25 12:10 36.7 C 80 17 206/80 H 99 Room Air Laboratory Results Short CBC 03/27/25 03/27/25 Range/Units 12:10 13:05 WBC Cancelled 7.67 Hgb Cancelled 14.8 Hct Cancelled 40.5 Plt Count Cancelled 238 BMP 03/27/25 12:10 Sodium 126 L Potassium 3.8 Chloride 93 L Carbon Dioxide 25 BUN 16 Creatinine 0.70 Glucose 101 H Calcium 11.0 H Liver Function 03/27/25 Range/Units 12:10 Total Bilirubin 0.8 (0.2-1.0) mg/dl AST 20 (13-39) U/L ALT 14 (7-52) U/L Alkaline Phosphatase 104 (34-104) U/L Albumin 4.5 (3.4-5.0) gm/dl Urine 03/27/25 Range/Units 15:31 Urine Color Yellow Urine Appearance Clear (Clear) Urine pH 7.0 (4.5-7.5) Ur Specific [place] 1.007 (1.000-1.030) Urine Protein Negative (Negative) Urine Glucose (UA) Negative (Negative) Diagnostic Findings Chest X-Ray 03/27/25 12:31 XR chest 1V portable HISTORY: 89 years-old Female dizziness acute dizziness COMPARISON: None available TECHNIQUE: AP view of the chest FINDINGS: Cardiomediastinal and hilar silhouettes are within normal limits. Atherosclerosis of the aorta. No pneumothorax, pleural effusion, airspace consolidation or pulmonary edema. Degenerative changes of the shoulders and spine. IMPRESSION: No acute process. ACT 112: Negative or not required by law. The above report was generated using voice recognition software. It may contain grammatical, syntax or spelling errors. Electronically signed by: Alfonso Nicole M.D. 03/27/2025 1:[address] 03/27/25 12:49 CT SCAN OF THE BRAIN WITHOUT IV CONTRAST CLINICAL HISTORY: Dizziness. COMPARISON STUDY: None. TECHNIQUE: Unenhanced axial CT scan of the brain was performed from the vertex to the skull base. A dose lowering technique was utilized adhering to the principles of ALARA. CT DOSE: 952.99 mGy.cm FINDINGS: Brain parenchyma: No acute intracranial hemorrhage, midline shift or mass effect is present. Lackey-white matter differentiation is preserved. There are no extra- axial fluid collections. There are no findings to suggest acute dural sinus thrombosis or acute territorial infarct. Ventricles, sulci, cisterns: There is no hydrocephalus. The basal cisterns are patent. Calvarium: Unremarkable. Sinuses and mastoids: The visualized paranasal sinuses are clear. The mastoid air cells are well pneumatized. Orbits: The bony orbits are grossly intact. IMPRESSION: No acute intracranial findings. ACT 112: Negative or not required by law. Electronically signed by: Jakob Graham M.D. 03/27/2025 3:27 PM Head CTA 03/27/25 12:49 CT ANGIOGRAM OF THE BRAIN CLINICAL HISTORY: Dizziness. COMPARISON STUDY: Unenhanced CT of the brain performed concurrently on 03/27/2025. TECHNIQUE: Following the IV administration of 115 cc of Optiray 320, CT angiogram of the brain was performed from the skull base to the vertex. Images are reviewed in the axial, sagittal, and coronal planes. 3-D MIPS images are created and assessed. IV contrast was administered without complication. A dose lowering technique was utilized adhering to the principles of ALARA. FINDINGS: Brain parenchyma: There is age related involutional change noting minimal microangiopathic disease. There is no evidence of hemorrhage or mass effect noting angiographic phase technique. There is no evidence of enhancing mass lesion on the angiogram phase images. No extra-axial fluid collection is seen. Lackey-white matter differentiation is preserved. Ventricles, sulci, and cisterns: Prominent secondary to involutional change. CT angiogram of the brain: There is atherosclerotic calcification of the cavernous carotid arteries. The internal carotid arteries at the skull base are patent, as are the anterior and middle cerebral arteries. The vertebrobasilar system and posterior cerebral arteries are patent. The right vertebral artery is dominant. A posterior communicating artery seen on the left. There is irregularity and foci of mild stenosis involving the basilar artery. No foci of high-grade stenosis are seen throughout the intracranial circulation. No aneurysm is identified and there is no focal vessel cut off appreciated. Dural sinuses: Clear as visualized. Orbits: The bony orbits are intact. The orbital contents are normal as visualized. Sinuses and mastoids: There is trace mucosal thickening within the left ma xillary antra and ethmoid sinuses. The mastoid air cells are well pneumatized. Calvarium: Unremarkable. IMPRESSION: 1. There is no evidence of hemorrhage or mass effect noting angiographic phase technique. 2. No aneurysm, foci of high-grade stenosis, or vessel occlusion is seen throughout the intracranial circulation. ACT 112: Negative or not required by law. Electronically signed by: Eliud Naranjo M.D. 03/27/2025 3:28 PM Neck CTA 03/27/25 12:49 CT angio neck with con CLINICAL HISTORY: 89 years-old Female with dizziness. Acute dizziness COMPARISON STUDY: Head CT same day TECHNIQUE: Following the IV administration of 115 mL of Optiray, CT angiogram of the neck was performed from the aortic arch to the skull base. Images are rev iewed in the axial, sagittal, and coronal planes. 3-D MIPS images are created and assessed. IV contrast was administered without complication. All measurements were calculated based on NASCET criteria. A dose lowering technique was utilized adhering to the principles of ALARA. FINDINGS: Atherosclerosis of the thoracic aortic arch. Patency of the innominate and image subclavian arteries. The common carotid arteries are widely patent. Atherosclerosis of the carotid bulbs without high-grade stenosis. Dominant right vertebral artery demonstrates mild multifocal stenoses secondary to the changes of the cervical spine. The left vertebral artery is patent with the V4 segment very diminutive in size distal to the plica origin. Partially imaged moderate stenosis of the mid basilar artery. Lung apices are clear. No pneumothorax. 7 mm hypodense right-sided thyroid nodule. Right-sided thyroid calcifications. Degenerative changes of the cervical spine. IMPRESSION: 1. Very small caliber of the distal V4 segment left vertebral artery distal to the PICA origin, likely developmental. 2. Moderate atherosclerosis of the carotid bulbs without high-grade stenosis. ACT 112: Negative or not required by law. The above report was generated using voice recognition software. It may contain grammatical, syntax or spelling errors. Electronically signed by: Alfonso Nicole M.D. 03/27/2025 3:52 PM ECG Additional Comments: Sinus rhythm, rate 73, T wave changes anterior leads per my interpretation
--- NOTE | 2025-03-27 18:10 | Communication Note ---
Date of Service: March 27, 2025 Attending Addendum: Case reviewed with the advanced practitioner. I have personally performed a history and physical examination on the patient. I have reviewed the advanced practitioner's documentation on the date of service referenced in note, and I agree with, and take responsibility for the plan of care. please refer to her notes for full details patient seen and examined, records reviewed by myself as well on exam, patient seen resting in bed, comfortable Reports dizziness-room spinning around associated with nausea for the past 4 days, worse with head movements and standing up, walking around states her dizziness is better after Meclizine, Ativan and Zofran Nausea also resolved No blurring of vision, diplopia, changes with hearing, focal weakness or numbness or other focal neurologic symptoms Denies headache, chest pain, shortness of breath no ear pain, tinnitus, discharge no recent upper respiratory tract infection/symptoms no other symptoms VS noted and reviewed oriented x3, not in distress, speaks in sentences with no effort nor accessory muscle use ears: essentially normal exam normal rate, regular rhythm, no murmurs clear breath sounds bilaterally non distended, soft, nontender no bipedal edema, erythema, warmth no neuro deficits all labs, imaging noted and reviewed ASSESSMENT AND PLAN> DIZZINESS LIKELY BPPV R/O CEREBELLAR STROKE CT head: No acute CVA CT angiogram head and neck: No aneurysm, occlusion presentation seems to be consistent with BPPV, symptoms are resolving with meclizine and Zofran, Continue with as needed meclizine and Zofran PT evaluation tomorrow for Oriska-Hallpike's test, possible Sigifredo maneuver brain MRI ordered to rule out acute CVA, cerebellar stroke HYPERTENSION no history of hypertension Possibly driven by BPPV hydralazine 2.5 mg IV 1 dose ordered monitor closely HYPONATREMIA serum sodium 126, urine sodium 38 Patient appears euvolemic 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 Ernie Miguel MD
[2025-03-27] MEDS ORDERED: ONDANSETRON INJ 2 MG/ML 2 ML VIAL IV PRN (19:27)
[2025-03-27] MEDS ORDERED: POLYETHYLENE (MIRALAX) 17 GM PACK PO PRN (19:27)
[2025-03-27] MEDS ORDERED: ACETAMINOPHEN 325 MG TAB PO PRN (19:27)
--- NOTE | 2025-03-27 19:36 | Magnetic Resonance Report ---
MRI of the brain performed without IV contrast History: Dizziness Comparison: None Technique: Sagittal T1-weighted and axial T2-weighted, T2/FLAIR and diffusion-weighted with ADC map images of the brain were obtained without IV contrast. Findings: No evidence for intracranial mass lesion, mass-effect, midline shift, or abnormal extra-axial fluid collection. Mild cerebral atrophy. Mild chronic small vessel ischemic changes in the white matter. No abnormally reduced diffusion or evidence for acute infarct. Normal intravascular flow voids. Impression: Normal brain MRI Electronically signed by Sin Yanez 03-27-2025 7:36 PM
[2025-03-27 21:15] LABS: Anion Gap 9.0 (3-11); Calcium 10.3 mg/dl (8.6-10.3); Carbon Dioxide 23.0 mmol/L (21-32); Chloride 97.0 mmol/L (98-107); Potassium 3.9 mmol/L (3.5-5.1); Sodium 129.0 mmol/L (136-145)
[2025-03-27] MEDS: HEPARIN SOD 5,000 UNIT/0.5 ML VIAL SQ SCH (21:19)
[2025-03-27 21:21] LABS: Blood Urea Nitrogen 14.0 mg/dl (6-23); Creatinine Clr Calc Pharmacy 47.3 ml/min; Glucose 82.0 mg/dl (70-99(Fasting))
[2025-03-28 07:04] LABS: Hematocrit (blood only) 36.4 % (37.0-47.0); Hemoglobin 13.1 g/dL (12.0-16.0); Mean Corpuscular Hemoglobin 32.5 pg (25.0-34.0); Mean Corpuscular Volume 90.3 fL (80.0-100.0); Platelet Count 216 K/uL (130-400); RDW Standard Deviation 41.0 fL (36.4-46.3); Red Blood Count 4.03 M/uL (4.20-5.40); White Blood Count 6.89 K/ul (4.8-10.8)
[2025-03-28 07:48] LABS: Anion Gap 5.0 (3-11); Blood Urea Nitrogen 15.0 mg/dl (6-23); Calcium 9.8 mg/dl (8.6-10.3); Carbon Dioxide 27.0 mmol/L (21-32); Chloride 98.0 mmol/L (98-107); Creatinine Clr Calc Pharmacy 45.6 ml/min; Glucose 86.0 mg/dl (70-99(Fasting)); Potassium 3.9 mmol/L (3.5-5.1); Sodium 130.0 mmol/L (136-145)
[2025-03-28 08:04] LABS: Thyroid Stimulating Hormone 2.098 uIu/ml (0.300-4.500)
--- NOTE | 2025-03-28 10:26 | Electrocardiogram Report ---
Test Reason : Blood Pressure : */* mmHG Vent. Rate : 67 BPM Atrial Rate : 67 BPM P-R Int : 176 ms QRS Dur : 96 ms QT Int : 418 ms P-R-T Axes : 50 33 42 degrees QTcB Int : 441 ms Normal sinus rhythm Moderate voltage criteria for LVH, may be normal variant ( Sokolow-Webb , [place]mas product ) Nonspecific ST abnormality Inferior leads ST elevation, consider early repolarization, pericarditis, or injury Anterior leads Abnormal ECG When compared with ECG of 27-Mar-2025 12:21, (unconfirmed) Premature atrial complexes are no longer Present ST more elevated in Anterior leads Confirmed by Chris Hsieh ([id number]) on 03/28/2025 10:25:46 AM Referred By: REFERRED SELF Confirmed By: Chris Hsieh
--- NOTE | 2025-03-28 14:02 | Hospitalist Progress Note ---
Date of Service March 28, 2025 Assessment & Plan (1) Dizziness: Plan 89-year-old female with PMH of HLD, primary hyperparathyroidism, hyperkalemia presented to ER with complaint of dizziness x 4 days. Patient states four days ago she woke up and stood up and had dizziness she describes as "house spinning" with associated nausea and feeling off balance. Reported dizziness with any movement or walking. States had some dry heaves but no vomiting. Reports sitting in recliner past 3 days secondary to dizziness. Also reports not eating or drinking as much secondary to the dizziness. Chronic hearing loss and poor vision without any acute changes reported. Denies tinnitus. Denies fever/chills, diaphoresis, diarrhea, constipation, CARLSON, syncope, neck pain, CP, SOB, cough, sore throat, otalgia, rhinorrhea, abdominal pain, paresthesias, weakness, rashes, urinary symptoms. Dizziness, likely BPPV Presented w/ abrupt onset dizziness, "room spinning", a/w nause, dry heaves, poor appetite, off balance. Dizziness worse w/ head movement and ambulation. No tinnitus, blurry vision, numbness or tingling sensation. Chronic hearing loss and poor vision without any acute changes reported. Head and neck imaging negative for stroke, positive for arthrosclerotic disease, patient counseled regarding need for lipid-lowering medications, patient declined. Patient reported improvement of symptoms with meclizine. Status post Sigifredo maneuver 03/28, patient reports improvement in her nausea, vomiting and is able to eat better. Patient reports some improvement in her dizziness but he still feels weak and "woozy" d/w ENT over TT, recs are c/w meclizine and f/u as OP. Fall precautions, PT. 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 Since appetite is improving, expect Na to improve. Hypertensive urgency: In ER BP 206/80, 195/91 Appears w/ elevated BP in past. Acute elevation likely 2/2 underlying dizziness Prn hydralazine. Monitor BP. Pt hesitant about medications, declined [facility] bp med Hyperlipemia/atherosclerotic vascular disease: Recent Lipid panel on 12/24/24: Total: 269, LDL: 187, HDL: 57, triglycerides: 126. Patient declines lipid- lowering medication. Hyperparathyroidism, primary: Chronic Hypercalcemia Previously followed with endocrinology. Declines intervention and is monitored baseline Cr: 10.5-10.8. Monitor. History hyperkalemia: K: 3.8 (baseline K: 5.4-5.9). Monitor BMP DVT Prophylaxis: SQ Heparin DNR/DNI as per discussion with pt Follows with Dr Lopez for routine care pt , cm to assist w/ dc plan. Called Pt's son over the phone for general update, left voicemail for call back at the hospital. Admission and Anticipated Discharge Date Admission Date: March 27, 2025 Subjective Patient was seen and examined at bedside. During morning rounds, patient reported control of her nausea and vomiting and did report some improving diet. Patient is still reported dizziness and room spinning. Patient denies fever/sore throat/cough/chest pain. Head and neck imaging findings were discussed with the patient including atherosclerotic findings, patient does not want to be on lipid-lowering medications. During afternoon rounds after Sigifredo maneuver, patient reports improvement in room spinning sensation, improvement in nausea and vomiting, reports she has been able to eat good after 4 days, reports still feeling some "woozy" and weak. Physical Exam Physical Exam: General: no distress, WDWN Head: normocephalic, atraumatic Eyes: PERRL, EOM's intact, conjunctiva non-injected, anicteric ENT: normal inspection external ears, nose, mucous membranes moist Neck: supple, trachea midline, non-tender Lungs: clear, no respiratory distress, no wheezing/rhonchi/rales CV: RRR, no murmur, trace pretibial edema Abd: normal BS, soft, non-tender Ext: no cyanosis, no calf tenderness Neuro: A&O x 3, +horizontal nystagmus noted, +dizziness reproduced with movement of head, no focal deficits noted, normal affect Skin: warm, dry Results & Data Results & Data Vital Signs (Past 12 Hours) Vital Signs Temp Pulse Pulse Resp BP Pulse Ox O2 Del Method 03/28/25 10:26 79 18 163/68 H 99 Room Air 03/28/25 08:11 71 03/28/25 07:00 36.7 C 66 12 144/74 H 95 Room Air 03/28/25 03:17 78 03/28/25 02:37 36.8 C 73 16 117/66 95 Room Air
[2025-03-28] MEDS: INFLUENZA VACC TS2025-26(65y+)/PF (IIV3) 0.5mL Syr IM ONE (15:58)
[2025-03-28] MEDS: PNEUMOCOCCAL VACCINE (PCV20) 20-VAL CONJ-DIP CRM/PF 0.5 ML SYR IM ONE (15:58)
--- NOTE | 2025-03-28 16:44 | Electrocardiogram Report ---
Test Reason : Blood Pressure : */* mmHG Vent. Rate : 73 BPM Atrial Rate : 73 BPM P-R Int : 158 ms QRS Dur : 86 ms QT Int : 384 ms P-R-T Axes : 70 59 36 degrees QTcB Int : 423 ms Sinus rhythm with Premature atrial complexes in a pattern of bigeminy Minimal voltage criteria for LVH, may be normal variant ( Sokolow-Webb ) Borderline ECG No previous ECGs available Confirmed by Chris Hsieh ([id number]) on 03/28/2025 4:44:07 PM Referred By: Confirmed By: Chris Hsieh
[2025-03-28 17:16] LABS: Chlamydia pneumoniae PCR Not Detected (NotDetected); Coronavirus 229E PCR Not Detected (NotDetected); Coronavirus CoV-2 (COVID19)PCR Not Detected (NotDetected); Coronavirus HKU1 PCR Not Detected (NotDetected); Coronavirus NL63 PCR Not Detected (NotDetected); Coronavirus OC43PCR Not Detected (NotDetected); Human Metapneumovirus PCR Not Detected (NotDetected); Parainfluenza Virus 1 PCR Not Detected (NotDetected); Parainfluenza Virus 2 PCR Not Detected (NotDetected); Parainfluenza Virus 3 PCR Not Detected (NotDetected); Parainfluenza Virus 4 PCR Not Detected (NotDetected); Respiratory Syncytial VirusPCR Not Detected (NotDetected); Rhinovirus/Enterovirus PCR Not Detected (NotDetected)
[2025-03-29 06:10] LABS: Hematocrit (blood only) 37.3 % (37.0-47.0); Hemoglobin 13.4 g/dL (12.0-16.0); Mean Corpuscular Hemoglobin 32.2 pg (25.0-34.0); Mean Corpuscular Volume 89.7 fL (80.0-100.0); Platelet Count 216 K/uL (130-400); RDW Standard Deviation 40.9 fL (36.4-46.3); Red Blood Count 4.16 M/uL (4.20-5.40); White Blood Count 7.19 K/ul (4.8-10.8)
[2025-03-29 06:26] LABS: Anion Gap 7.0 (3-11); Blood Urea Nitrogen 16.0 mg/dl (6-23); Calcium 9.8 mg/dl (8.6-10.3); Carbon Dioxide 24.0 mmol/L (21-32); Chloride 101.0 mmol/L (98-107); Creatinine Clr Calc Pharmacy 41.0 ml/min; Glucose 91.0 mg/dl (70-99(Fasting)); Magnesium 2.2 mg/dl (1.7-2.4); Potassium 3.9 mmol/L (3.5-5.1); Sodium 132.0 mmol/L (136-145)
--- NOTE | 2025-03-29 12:48 | Hospitalist Progress Note ---
Date of Service March 29, 2025 Assessment & Plan (1) Dizziness: Plan 89-year-old female with PMH of HLD, primary hyperparathyroidism, hyperkalemia presented to ER with complaint of dizziness x 4 days. Patient states four days ago she woke up and stood up and had dizziness she describes as "house spinning" with associated nausea and feeling off balance. Reported dizziness with any movement or walking. States had some dry heaves but no vomiting. Reports sitting in recliner past 3 days secondary to dizziness. Also reports not eating or drinking as much secondary to the dizziness. Chronic hearing loss and poor vision without any acute changes reported. Denies tinnitus. Denies fever/chills, diaphoresis, diarrhea, constipation, CARLSON, syncope, neck pain, CP, SOB, cough, sore throat, otalgia, rhinorrhea, abdominal pain, paresthesias, weakness, rashes, urinary symptoms. Dizziness, likely BPPV Presented w/ abrupt onset dizziness, "room spinning", a/w nause, dry heaves, poor appetite, off balance. Dizziness worse w/ head movement and ambulation. No tinnitus, blurry vision, numbness or tingling sensation. Chronic hearing loss and poor vision without any acute changes reported. Head and neck imaging negative for stroke, positive for arthrosclerotic disease, patient counseled regarding need for lipid-lowering medications, patient declined. Patient reported improvement of symptoms with meclizine but has been declining further meclizine Status post Sigifredo maneuver 03/28, patient reports improvement in her nausea, vomiting, dizziness and is able to eat better. d/w ENT over TT 03/28, recs are c/w meclizine and f/u as OP. Pt made aware of this discussion, pt agreeable to f/u ENT as OP Fall precautions, PT. 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 Since appetite is improving, expect Na to improve. Hypertensive urgency: In ER BP 206/80, 195/91 Appears w/ elevated BP in past. Acute elevation likely 2/2 underlying dizziness Prn hydralazine. Monitor BP. Pt hesitant about medications, declined [facility] bp med Hyperlipemia/atherosclerotic vascular disease: Recent Lipid panel on 12/24/24: Total: 269, LDL: 187, HDL: 57, triglycerides: 126. Patient declines lipid- lowering medication. Hyperparathyroidism, primary: Chronic Hypercalcemia Previously followed with endocrinology. Declines intervention and is monitored baseline Cr: 10.5-10.8. Monitor. History hyperkalemia: K: 3.8 (baseline K: 5.4-5.9). Monitor BMP DVT Prophylaxis: SQ Heparin DNR/DNI as per discussion with pt Follows with Dr Lopez for routine care pt , cm to assist w/ dc plan. likely to rehab [facility]. Pt's son updated 03/28 over the phone in detail, answered all his questions to the best of my ability, he voiced understanding. Admission and Anticipated Discharge Date Admission Date: March 27, 2025 Subjective Patient was seen and examined at bedside. Patient reports improvement in her nausea, vomiting, dizziness. She still has some dizziness with turning her head. Patient declines to take as needed meclizine or declines to starting any scheduled blood pressure and lipid medications. Patient denies other complaints. Patient is able to eat okay and feels better. Physical Exam Physical Exam: General: no distress, WDWN Head: normocephalic, atraumatic Eyes: PERRL, EOM's intact, conjunctiva non-injected, anicteric ENT: normal inspection external ears, nose, mucous membranes moist Neck: supple, trachea midline, non-tender Lungs: clear, no respiratory distress, no wheezing/rhonchi/rales CV: RRR, no murmur, trace pretibial edema Abd: normal BS, soft, non-tender Ext: no cyanosis, no calf tenderness Neuro: A&O x 3, +horizontal nystagmus noted, +dizziness reproduced with movement of head, no focal deficits noted, normal affect Skin: warm, dry Results & Data Results & Data Vital Signs (Past 12 Hours) Vital Signs Temp Pulse Pulse Resp BP BP Pulse Ox 03/29/25 11:30 36.8 C 75 18 144/66 H 97 03/29/25 07:49 36.6 C 70 16 137/72 93 03/29/25 07:48 69 03/29/25 02:36 37 C 74 18 151/74 H 93 O2 Del Method 03/29/25 11:30 Room Air 03/29/25 07:49 Room Air 03/29/25 07:48 03/29/25 02:36 Room Air
[2025-03-29] MEDS: MECLIZINE HCL 25 MG TAB PO PRN (14:53)
[2025-03-30 07:41] LABS: Anion Gap 6.0 (3-11); Blood Urea Nitrogen 18.0 mg/dl (6-23); Calcium 9.9 mg/dl (8.6-10.3); Carbon Dioxide 27.0 mmol/L (21-32); Chloride 101.0 mmol/L (98-107); Creatinine Clr Calc Pharmacy 37.1 ml/min; Glucose 89.0 mg/dl (70-99(Fasting)); Magnesium 2.2 mg/dl (1.7-2.4); Potassium 4.0 mmol/L (3.5-5.1); Sodium 134.0 mmol/L (136-145)
[2025-03-30] MEDS: LOSARTAN POTASSIUM 25 MG TAB PO SCH (11:19)
--- NOTE | 2025-03-30 12:12 | Hospitalist Progress Note ---
Date of Service March 30, 2025 Assessment & Plan (1) Dizziness: Plan 89-year-old female with PMH of HLD, primary hyperparathyroidism, hyperkalemia presented to ER with complaint of dizziness x 4 days. Patient states four days ago she woke up and stood up and had dizziness she describes as "house spinning" with associated nausea and feeling off balance. Reported dizziness with any movement or walking. States had some dry heaves but no vomiting. Reports sitting in recliner past 3 days secondary to dizziness. Also reports not eating or drinking as much secondary to the dizziness. Chronic hearing loss and poor vision without any acute changes reported. Denies tinnitus. Denies fever/chills, diaphoresis, diarrhea, constipation, CARLSON, syncope, neck pain, CP, SOB, cough, sore throat, otalgia, rhinorrhea, abdominal pain, paresthesias, weakness, rashes, urinary symptoms. Dizziness, likely BPPV Presented w/ abrupt onset dizziness, "room spinning", a/w nause, dry heaves, poor appetite, off balance. Dizziness worse w/ head movement and ambulation. No tinnitus, blurry vision, numbness or tingling sensation. Chronic hearing loss and poor vision without any acute changes reported. Head and neck imaging negative for stroke, positive for arthrosclerotic disease, patient counseled regarding need for lipid-lowering medications, patient declined. Patient reported improvement of symptoms with meclizine but has been declining further meclizine Status post Sigifredo maneuver 03/28, patient reports improvement in her nausea, vomiting, dizziness and is able to eat better. d/w ENT over TT 03/28, recs are c/w meclizine and f/u as OP. Pt made aware of this discussion, pt agreeable to f/u ENT as OP Fall precautions, PT. c/w meclizine prn pt reports significant improvement in her symptoms. Mild hyponatremia: Na 126 at presentation, likely 2/[address] [employer], improving now. Since appetite is improving, expect Na to improve. Hypertensive urgency: In ER BP 206/80, 195/91 Appears w/ elevated BP in past. Acute elevation likely 2/2 underlying dizziness Prn hydralazine. Monitor BP. Pt agreeable for low dose losartan. BMP in 1 week on dc. c/t f/u w/ pcp for ongoing monitoring/dose adjustment. Hyperlipemia/atherosclerotic vascular disease: Recent Lipid panel on 12/24/24: Total: 269, LDL: 187, HDL: 57, triglycerides: 126. Patient declines lipid- lowering medication. Hyperparathyroidism, primary: Chronic Hypercalcemia Previously followed with endocrinology. Declines intervention and is monitored baseline Cr: 10.5-10.8. Monitor. History hyperkalemia: K: 3.8 (baseline K: 5.4-5.9). Monitor BMP DVT Prophylaxis: SQ Heparin DNR/DNI as per discussion with pt Follows with Dr Lopez for routine care pt , cm to assist w/ dc plan. likely to rehab [facility]. Admission and Anticipated Discharge Date Admission Date: March 27, 2025 Subjective Patient was seen and examined at bedside. Patient reports improvement in her nausea, vomiting, dizziness, even more so after trying meclizine once yesterday. She feels significantly better. Pt explained in detail the need for lipid lowering and HTN meds, she agreed w/ bp meds for now. she was advised to utilize meclizine if she is with dizziness. pt's son at bedside, was updated on plan of care. Physical Exam Physical Exam: General: no distress, WDWN Head: normocephalic, atraumatic Eyes: PERRL, EOM's intact, conjunctiva non-injected, anicteric ENT: normal inspection external ears, nose, mucous membranes moist Neck: supple, trachea midline, non-tender Lungs: clear, no respiratory distress, no wheezing/rhonchi/rales CV: RRR, no murmur, trace pretibial edema Abd: normal BS, soft, non-tender Ext: no cyanosis, no calf tenderness Neuro: A&O x 3, no focal deficits noted, normal affect Skin: warm, dry Results & Data Results & Data Vital Signs (Past 12 Hours) Vital Signs Temp Pulse Pulse Resp BP BP Pulse Ox 03/30/25 11:13 36.6 C 79 17 150/79 H 97 03/30/25 07:25 66 03/30/25 07:22 36.7 C 64 17 131/65 97 03/30/25 01:53 36.7 C 73 16 145/76 H 95 O2 Del Method 03/30/25 11:13 Room Air 03/30/25 07:25 03/30/25 07:22 Room Air 03/30/25 01:53 Room Air
[2025-03-30 19:58] VITALS: RESP 18
[2025-03-31 06:47] LABS: Anion Gap 5.0 (3-11); Blood Urea Nitrogen 22.0 mg/dl (6-23); Calcium 9.8 mg/dl (8.6-10.3); Carbon Dioxide 25.0 mmol/L (21-32); Chloride 102.0 mmol/L (98-107); Creatinine Clr Calc Pharmacy 46.6 ml/min; Glucose 90.0 mg/dl (70-99(Fasting)); Potassium 4.3 mmol/L (3.5-5.1); Sodium 132.0 mmol/L (136-145)
--- NOTE | 2025-03-31 11:16 | Discharge Summary ---
Date of Service March 31, 2025 Admission HPI Per Admitting Provider Patient is a 89-year-old female with PMH HLD, primary hyperparathyroidism, hyperkalemia presented to ER with complaint of dizziness x 4 days. Patient states four days ago she woke up and stood up and had dizziness she describes as "house spinning" with associated nausea and feeling off balance. Reports dizziness with any movement or walking. States had some dry heaves but no vomiting. Reports sitting in recliner past 3 days secondary to dizziness. Noticed bilateral ankles looked swollen however reports have decreased since being in ER in bed with legs elevated. Also reports not eating or drinking as much secondary to the dizziness. Typically consumes 5-7 glasses water daily however over past 3 days has only consumed 5 glasses water. Chronic hearing loss and poor vision without any acute changes reported. Denies tinnitus. Denies fever/chills, diaphoresis, diarrhea, constipation, CARLSON, syncope, neck pain, CP, SOB, cough, sore throat, otalgia, rhinorrhea, abdominal pain, paresthesias, weakness, rashes, urinary symptoms. Admission Exam Per Admitting Provider General: no distress, WDWN Head: normocephalic, atraumatic Eyes: PERRL, EOM's intact, conjunctiva non-injected, anicteric ENT: normal inspection external ears, nose, mucous membranes moist Neck: supple, trachea midline, non-tender Lungs: clear, no respiratory distress, no wheezing/rhonchi/rales CV: RRR, no murmur, trace pretibial edema Abd: normal BS, soft, non-tender Ext: no cyanosis, no calf tenderness Neuro: A&O x 3, + +horizontal nystagmus noted, +dizziness reproduced with movement of head, no focal deficits noted, normal affect Skin: warm, dry Principal Diagnosis Dizziness, likely BPPV Mild hyponatremia Hypertensive urgency Hyperlipidemia/atherosclerotic vascular disease Discharge Exam General: no distress, WDWN Head: normocephalic, atraumatic Eyes: PERRL, EOM's intact, conjunctiva non-injected, anicteric ENT: normal inspection external ears, nose, mucous membranes moist Neck: supple, trachea midline, non-tender Lungs: clear, no respiratory distress, no wheezing/rhonchi/rales CV: RRR, no murmur, trace pretibial edema Abd: normal BS, soft, non-tender Ext: no cyanosis, no calf tenderness Neuro: A&O x 3, no focal deficits noted, normal affect Skin: warm, dry Discharge Data Allergies Allergy/AdvReac Type Severity Reaction Status Date / Time indigotindisulfonic acid Allergy Mild Told not Verified 03/27/25 17:19 [From [facility] [place]] to use by MD due to source of from insects? atorvastatin Allergy swelling Verified 03/27/25 17:19 of lips bee venom protein (honey bee) Allergy Anaphylaxis Verified 03/27/25 17:19 Penicillins Allergy Hives Verified 03/27/25 17:19 pravastatin [From Pravachol] Allergy swelling Verified 03/27/25 17:19 of lips Consultations 03/27/25 15:49 ED Decision to Admit Stat Ordered Studies 03/27/25 12:49 CT head/brain wo con Stat CTA head w con [CT angio head w con] Stat CTA neck with con [CT angio neck with con] Stat 03/27/25 16:50 MRI Brain [MR brain wo con] Urgent Hospital Course (1) Dizziness: Plan 89-year-old female with PMH of HLD, primary hyperparathyroidism, hyperkalemia presented to ER with complaint of dizziness x 4 days. Patient states four days ago she woke up and stood up and had dizziness she describes as "house spinning" with associated nausea and feeling off balance. Reported dizziness with any movement or walking. States had some dry heaves but no vomiting. Reports sitting in recliner past 3 days secondary to dizziness. Also reports not eating or drinking as much secondary to the dizziness. Chronic hearing loss and poor vision without any acute changes reported. Denies tinnitus. Denies fever/chills, diaphoresis, diarrhea, constipation, CARLSON, syncope, neck pain, CP, SOB, cough, sore throat, otalgia, rhinorrhea, abdominal pain, paresthesias, weakness, rashes, urinary symptoms. Dizziness, likely BPPV Presented w/ abrupt onset dizziness, "room spinning", a/w nause, dry heaves, poor appetite, off balance. Dizziness worse w/ head movement and ambulation. No tinnitus, blurry vision, numbness or tingling sensation. Chronic hearing loss and poor vision without any acute changes reported. Head and neck imaging negative for stroke, positive for arthrosclerotic disease, patient counseled regarding need for lipid-lowering medications, patient declined. Patient is reluctant to try meclizine. Status post Sigifredo maneuver 03/28, patient reports improvement in her nausea, vomiting, dizziness and is able to eat better. d/w ENT over TT 03/28, recs are c/w meclizine and f/u as OP. Pt made aware of this discussion, pt agreeable to f/u ENT as OP Fall precautions, PT. c/w meclizine prn pt reports significant improvement in her symptoms. 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 Since appetite is improving, expect Na to improve. Patient was encouraged for protein rich diet. Hypertensive urgency: In ER BP 206/80, 195/91 Appears w/ elevated BP in past. Acute elevation likely 2/2 underlying dizziness Prn hydralazine. Monitor BP. Pt agreeable for low dose losartan. BMP in 1 week on dc. c/t f/u w/ pcp for ongoing monitoring/dose adjustment. Hyperlipemia/atherosclerotic vascular disease: Recent Lipid panel on 12/24/24: Total: 269, LDL: 187, HDL: 57, triglycerides: 126. Patient declines lipid- lowering medication. Hyperparathyroidism, primary: Chronic Hypercalcemia Previously followed with endocrinology. Declines intervention and is monitored baseline Cr: 10.5-10.8. Monitor. History hyperkalemia: K: 3.8 (baseline K: 5.4-5.9). Monitor BMP DVT Prophylaxis: SQ Heparin DNR/DNI as per discussion with pt Follows with Dr Lopez for routine care Patient is being discharged to [facility] with following instructions at the point of discharge: Follow-up with your primary care physician within a week time and likely you will need labs CBC/CMP/magnesium/phosphorus. Recommend you establish and follow up with ENT physician as an outpatient. Recommend protein rich diets, heart healthy diet. Measure your blood pressure twice a day to maintain a log to take to your primary care physician for ongoing management/dose adjustment of your blood pressure medication. You have been started on low-dose losartan, you will need repeat BMP in 1 week time. Coordinate with your PCP office to set up the test. As discussed at the bedside, recommend that you discuss further treatment regarding your hyperlipidemia with your PCP. Take medications as prescribed. Please make sure that you are able to get your medications today by calling your pharmacy before you leave the hospital so that your treatment continuity is not broken. Home Health Attestation I certify that this patient is under my care and that I, or a physicians showroom sales assistant working with me, had a face to-face encounter that meets the home health [id number] encounter requirements with this patient. The encounter with the patient was in whole, or in part, for the following medical condition, which is the primary reason for home health care (list medical condition): I certify that, based on my findings, the following services are medically necessary home health services: My clinical findings support the need for the above services because: Further, I certify that my clinical findings support that this patient is homebound (i.e. absences from home require considerable and taxing effort and are for medical reasons or synagogue services or infrequently or of short duration when for other reasons) because: Certification for Home Health Services: Based on the above findings, I certify that this patient is confined to the home and needs intermittent mcc care, physical therapy and/or speech therapy or continues to need occupational therapy. The patient is under my care, and I have initiated the establishment of the plan of care. This patient will be followed by a physician who will periodically review the plan of care. Total Time Total Time Spent Total Time Spent (In Minutes): 35 Discharge Plan Discharge Items Patient Disposition: Transfer Inpatient Rehab Fac Reason For Visit: DIZZINESS Discharge Diagnosis: Dizziness, likely BPPV Mild hyponatremia Hypertensive urgency Hyperlipidemia/atherosclerotic vascular disease Condition on Discharge: Fair Activity: Resume your previous activity Non-emergency contact: Primary Care Provider Call non-emergency contact if: you have any medication questions Follow-up/Referrals: Tommy Lopez MD [Primary Care Provider] - Diet: Heart Healthy Addtl Attending Provider Instructions: Follow-up with your primary care physician within a week time and likely you will need labs CBC/CMP/magnesium/phosphorus. Recommend you establish and follow up with ENT physician as an outpatient. Recommend protein rich diets, heart healthy diet. Measure your blood pressure twice a day to maintain a log to take to your primary care physician for ongoing management/dose adjustment of your blood pressure medication. You have been started on low-dose losartan, you will need repeat BMP in 1 week time. Coordinate with your PCP office to set up the test. As discussed at the bedside, recommend that you discuss further treatment regarding your hyperlipidemia with your PCP. Take medications as prescribed. Please make sure that you are able to get your medications today by calling your pharmacy before you leave the hospital so that your treatment continuity is not broken. Pending Studies at Discharge: No Stand-Alone Forms: [employer], Smoking Cessation Skilled Items Patient informed of condition?: Yes DNR: Yes Discharge Level of Care: Acute rehab Communicable Disease: No Discharge Prognosis: Stable Lines: None Urinary Catheter: No Medications and DC Order Prescriptions: New meclizine 25 mg Tablet 25 mg PO Q8H PRN (Reason: dizziness) Qty: 30 0RF losartan 25 mg Tablet 25 mg PO QAM Qty: 30 0RF Discharge Orders: Discharge Order (Routine); Ordered 03/31/25 Ordered By: Angie Mcconnell Admission Data Admit Date/Time: 03/27/25 16:05 Attending Provider: Angie Mcconnell Admit Provider: Ernie Miguel Primary Care Provider: Tommy Lopez Other Providers: Ernie Miguel
[2025-03-31 11:18] VITALS: BP 126/78; TEMP 97.7; O2SAT 97
[2025-03-31 11:36] VITALS: PULSE 82
== END 2025-03-31 12:56 | DRG 149 ==
LOC: ED 12:08 → SUATTDRO 16:05 → 2N 16:05